=== PATIENT | male | born 1975 | race Caucasian/White ===

== ENCOUNTER → 2020-09-22 08:30 | Outpatient (BNVA) | payer OTHER, SELFPAY | PROVIDERS: PCP Internal Medicine; Referring Provider Internal Medicine; Visit Provider Physician Assistant | DX: Z76.89 Persons encountering health services in other specified circumstances (principal) ==

== ENCOUNTER 2023-06-27 00:12 | Emergency (ER) | payer OTHER, SELFPAY ==
[2023-06-27 00:14] VITALS: BP 151/85; PULSE 87; RESP 16; TEMP 36.4; O2SAT 97; BMI 37.6
[2023-06-27 00:38] LABS: IDNOW Serial# 08D9AD1C; Strep A Nucleic Acid Negative (Negative)
--- NOTE | 2023-06-27 02:49 | PC.NURSE ---
Patient presents with pain in the right side of his neck and head, pain present for the past day spreading to his ear and head today so he came to be evaluated. Patient believes this is due to an infection and attempted to go to the pharmacy today and get antibiotics but was told that he would need a prescription in order to get the medication. Patient is alert and oriented, no s/s of distress noted.
[2023-06-27 02:55] VITALS: BP 141/90; PULSE 65; RESP 17; O2SAT 99
== END 2023-06-27 05:38 | disposition left against medical advice (07) ==
PROVIDERS: Emergency Provider Emergency Medicine; PCP Internal Medicine
DX: H92.03 Otalgia, bilateral (principal); R51.9 Headache, unspecified; J02.9 Acute pharyngitis, unspecified
CPT/HCPCS: 87651; 99283; 99284